=== PATIENT | male | born 1995 | race Hispanic/Latino ===

== ENCOUNTER 2017-06-04 22:43 | Emergency (ER) | payer SELFPAY ==
[~2017-06-04] VITALS: Ht 175.3 cm; Wt 81.7 kg
== END 2017-06-04 23:56 | disposition home or self-care (01) ==
LOC: ED 22:43
DX: R40.4 Transient alteration of awareness (principal); T40.7X5A Adverse effect of cannabis (derivatives), initial encounter; Z85.72 Personal history of non-Hodgkin lymphomas
CPT/HCPCS: 99282